=== PATIENT | female | born 1980 | race Caucasian/White ===

== ENCOUNTER 2018-01-28 09:37 | Emergency (ER) | payer MEDICAID, OTHER ==
[~2018-01-28 09:37] MED LIST: AMOX-559 PO; AZIT-18 PO; BENZ100C4 PO; CEFU500T50 PO; CYCL-277 PO; DICL-195 PO; DIPH-1 PO; DOXY-228 PO; HYDR-3250 PO; HYDR-385 PO; HYDR-4309 PO; IBUP-1455 PO; IPRA3AMP10 IH; KET10 PO; LOR5/325 PO; LORA10CA3 PO; METH-543 PO; METH4TAB66 PO; ONDA-2 PO; ONDA4TAB PO; ONDA4TAB97 PO; OXYC-865 PO; OXYC1TAB54 PO; PANT20TA27 PO; PANT40TA65 PO; PER PO; PRED20TA6 PO; PROM-110 PO; RANI-318 PO; RANI-366 PO; SODI3.5O4 OP; SULF-198 PO; TRAM-420 PO; [UNRECOGNIZED DRUG - OTHER]
--- NOTE | 2018-01-28 11:17 | RADIOLOGY IMAGING REPORT ---
FACILITY: [facility] [place] PATIENT NAME: Sandra Zhu : 1980 MR: [id number] V: [id number] EXAM DATE: ORDERING PHYSICIAN: NATALYA RICARDO TECHNOLOGIST: Location: [facility] Patient: Sandra Zhu : 1980 Visit/Account:[id number] Date of Sevice: 01/28/2018 EXAMINATION: HIP LEFT HISTORY: Left hip pain. COMPARISON: 02/01/2015. FINDINGS: AP view of the pelvis and frog-leg lateral view of the left hip are obtained. Bones: Negative. Joint spaces: Negative. Hardware: None. Alignment: Normal. Soft tissues: Negative. IMPRESSION: No acute fracture or dislocation of the left hip. Report Dictated By: Mayo Freeman MD at 01/28/2018 11:12 AM Report E-Signed By: Mayo Freeman MD at 01/28/2018 11:13 AM WSN:[id number]
[2018-01-28] MEDS ORDERED: IBUPROFEN 600 MG TAB PO ONE (11:20)
--- NOTE | 2018-01-28 11:38 | ER Report ---
History and Physical Time Seen By MD: 10:00 Hx. of Stated Complaint: PT AWOKE AROUND 6:30 WITH LEFT HIP PAIN. HPI/ROS 38 y/o female had a minor orthopedic surgery approximately 4-5 weeks ago. Short surgery. Never non weight bearing. She wore a walking boot for 2 weeks. Now presents to the ED with a sharp, focal pain in her anterior thigh. No posterior leg pain. No chest pain or SOB. No pain in her calf or popliteal fossa. No fever /chills. No trauma/ falls. No abdominal pain. No vaginal bleeding. Allergies: Coded Allergies: codeine (Verified Allergy, Unknown, 01/28/18) Home Meds Active Scripts Cyclobenzaprine Hcl (CYCLOBENZAPRINE HCL) 5 Mg Tablet, 10 MG PO TID, #18 TAB Prov:THA VILLATORO MD 11/09/16 Reported Medications Ranitidine Hcl (ZANTAC) 150 Mg Tablet, 150 MG PO DAILY 02/08/15 Pantoprazole Sodium (PANTOPRAZOLE SODIUM) 20 Mg Tablet.dr, 40 MG PO QDAY, TAB.SR 02/08/15 Reviewed Nurses Notes: Yes Old Medical Records Reviewed: Yes Hx Smoking: Yes (1ppd) Smoking Status: Current: Every Day Smoker Exposure to Second Hand Smoke?: Yes Hx Substance Use Disorder: No Hx Alcohol Use: No Constitutional Vital Sign - Last 24 Hours 01/28/18 01/28/18 01/28/18 01/28/18 09:51 09:52 10:00 10:02 Temp 97.9 Pulse 106 99 Resp 16 B/P (MAP) 131/93 (106) 114/94 (101) 131/93 Pulse Ox 91 91 O2 Delivery Room Air 01/28/18 01/28/18 01/28/18 01/28/18 10:07 10:15 10:22 10:30 Pulse 95 B/P (MAP) 121/80 (94) 115/74 (88) Pulse Ox 91 92 01/28/18 01/28/18 01/28/18 10:45 11:00 11:15 B/P (MAP) 126/88 (101) 116/69 (85) 125/92 (103) Physical Exam GE: A/O x3 HEENT: PERRL, EOMI, moist mucosa CV: RRR no m/r/g Lungs: cta b/l Abdomen: soft, NTND MSK: Full ROM of right hip. No bony TTP. b/l LE symmetric. No posterior LE TTP, Point TTP at the insertion on the insertion of the quadratus femoris DDX: septic joint, DVT, fracture, dislocation, tendonitis, bursitis Medical Decision Making Data Points Laboratory Hematology Test 01/28/18 10:10 Urine HCG, Qualitative Negative (NEGATIVE) Chemistry Test 01/28/18 10:10 Urine HCG, Qualitative Negative (NEGATIVE) Urinalysis Test 01/28/18 10:10 Urine HCG, Qualitative Negative (NEGATIVE) EKG/Imaging Imaging Xray left hip: no fracture/dislocation, no effusion ED Course/Re-evaluation ED Course No falls or other trauma, no fever/chills, wore walking boot for weeks after minor surgery. I think she has a tendonitis from wearing a walking boot. I do not think this is DVT. She has point TTP at the tendon insertion. She refused Toradol. We placed a lidocaine patch and will give her gabapentin for the radiculopathy. She will follow up with her PCM this week. Decision to Disposition Date: Jan 28, 2018 Decision to Disposition Time: 11:59 Depart Departure Latest Vital Signs Vital Signs Date Time Temp Pulse Resp B/P (MAP) Pulse Ox O2 Delivery O2 Flow Rate FiO2 01/28/18 11:15 125/92 (103) 01/28/18 10:22 92 01/28/18 10:07 95 01/28/18 10:02 97.9 16 Room Air Impression: Primary Impression: Tendonitis Condition: Improved Disposition: HOME OR SELF-CARE Referrals: ONEYDA MATOS PA-C (PCP) New Scripts Gabapentin (GABAPENTIN) 300 Mg Capsule 300 MG PO TID for 10 Days, CAPSULE Prov: NATALYA RICARDO MD 01/28/18 Patient Instructions: Hip Bursitis (ED) NATALYA RICARDO MD Jan 28, 2018 11:38
[2018-01-28 11:45] VITALS: BP 116/74
[2018-01-28] MEDS ORDERED: LIDOCAINE 5% PATCH TP SCH (11:45)
[2018-01-28] MEDS ORDERED: GABA-549 PO (12:04)
[2018-01-28] MEDS ORDERED: PATCH REMOVAL 1 EA TOP SCH (21:00)
== END 2018-01-28 12:12 | disposition home or self-care (01) ==
LOC: ER 09:58
DX: M76.9 Unspecified enthesopathy, lower limb, excluding foot (principal)
CPT/HCPCS: 81025; 99283

== ENCOUNTER 2018-09-11 11:59 | Emergency (ER) | payer OTHER, MEDICAID ==
[~2018-09-11 11:59] MED LIST changes: +GABA-549 PO; -HYDR-4309 PO; +HYDR-653 PO; -SODI3.5O4 OP; +[UNRECOGNIZED DRUG - OTHER] OP
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
[2018-09-11] MEDS ORDERED: ASPI-1471 PO (12:12)
[2018-09-11] MEDS ORDERED: PREN-127 PO (12:12)
[2018-09-11] MEDS ORDERED: DEXL60CA6 PO (12:12)
[2018-09-11 13:00] VITALS: BP 105/70
--- NOTE | 2018-09-11 13:33 | RADIOLOGY IMAGING REPORT ---
FACILITY: [facility] PATIENT NAME: Sandra Zhu : 1980 MR: [id number] V: [id number] EXAM DATE: ORDERING PHYSICIAN: KATHARINE LE TECHNOLOGIST: Location: [facility] Patient: Sandra Zhu : 1980 Visit/Account:[id number] Date of Sevice: 09/11/2018 EXAMINATION: Left knee series, 3 views 09/11/2018 12:21 PM HISTORY: trauma COMPARISON: 02/04/2016 FINDINGS: Visualized bony structures are intact and anatomically aligned without fracture or other a cute osseous abnormality evident. IMPRESSION: Negative exam. Report Dictated By: Jw Boudreaux MD at 09/11/2018 1:28 PM Report E-Signed By: Jw Boudreaux MD at 09/11/2018 1:30 PM WSN:[email or web address]
== END 2018-09-11 13:08 | disposition home or self-care (01) ==
LOC: ER 12:06
DX: O26.892 Other specified pregnancy related conditions, second trimester (principal); Z3A.20 20 weeks gestation of pregnancy
CPT/HCPCS: 99283

== ENCOUNTER → 2018-09-14 | Outpatient (CLI) | payer OTHER, MEDICAID ==
[~2018-09-14] MED LIST changes: +ASPI-1471 PO; +DEXL60CA6 PO; +PREN-127 PO
--- NOTE | 2018-09-14 16:07 | RADIOLOGY IMAGING REPORT ---
FACILITY: [facility] PATIENT NAME: Sandra Zhu : 1980 MR: [id number] V: [id number] EXAM DATE: ORDERING PHYSICIAN: ALCIDES CARNES [place]CHNOLOG[place]: [place] [facility] [place] Zhu : 1980 Visit/Account:[id number] Date of Sevice: 09/14/2018 Left lower extremity venous Doppler duplex ultrasound scan. HISTORY: Left leg pain. COMPARISON: None. A color flow Doppler duplex ultrasound examination with spectral analysis was performed on the lower extremity. The common femoral vein, superficial femoral vein, and popliteal vein are normal. These ve ssels compress and augment normally. The upper portions of the trifurcation veins are unremarkable. P ortions of the deep veins of the calf are obscured. No intraluminal filling defects are identified to suggest acute thrombus in the deep venous system. No abnormal fluid collections. A venous reflux study was not performed at this time. Note that Doppler ultrasound is somewhat insensitive below the knee. IMPRESSION: Negative for acute deep vein thrombosis. Report Dictated By: Ruddy Sapp MD at 09/14/2018 4:02 PM Report E-Signed By: Ruddy Sapp MD at 09/14/2018 4:03 PM MARIEN:SANDRA
== END ==
LOC: US 14:27
PROVIDERS: ATTEND Orthopaedic Surgery
DX: R22.42 Localized swelling, mass and lump, left lower limb (principal)

== ENCOUNTER 2019-02-02 16:22 | Emergency (ER) | payer MEDICAID, OTHER ==
[~2019-02-02 16:22] MED LIST changes: -RANI-366 PO; +RANI-54 PO
--- NOTE | 2019-02-02 16:30 | ER Report ---
History and Physical Time Seen By MD: 16:26 HPI/ROS CHIEF COMPLAINT: Headache HISTORY OF PRESENT ILLNESS: This is a 39-year-old female who presents to the emergency department, 2 days , for a headache. Patient had a scheduled 2 days ago at [facility], she is a G18, P3. There were 2 attempts at her epidural. went well. She was told by her INGOT STRIPPER to have the rachel removed in 2 days, she went to urgent care this morning to have the rachel removed, they noted her blood pressure be quite e levated subsequently she was instructed to follow-up in the emergency department, she states that she went home after urgent care, she had to wait until her boyfriend was done with work so that he could take care of the kids including the who is formula fed. She states that she has a headache that is located at the "base of her skull" and is distributed through the head, slightly photophobic, no other visual disturbances. She does have mild tenderness to the lower abdomen. She denies fevers or chills. No nausea or vomiting. No chest pain or shortness of breath. No history of hypertension or preeclampsia. REVIEW OF SYSTEMS: Constitutional: No fever, no chills. Eyes: No discharge. ENT: No sore throat. Cardiovascular: No chest pain, no palpitations. Respiratory: No cough, no shortness of breath. Gastrointestinal: As above. INGOT STRIPPER: As above. Genitourinary: No hematuria. Musculoskeletal: No back pain. Skin: No rashes. Neurological: As above. Allergies: Coded Allergies: codeine (Verified Allergy, Severe, ANAPHYLAXIS, 09/11/18) Home Meds Active Scripts Labetalol Hcl (LABETALOL HCL) 200 Mg Tablet, 200 MG PO BID for 4 Days, #8 TAB 0 Refills Prov:RIOSMINNIE Ron COMPUTER TYPESETTER KEYLINER-BC 02/02/19 Reported Medications Aspirin (ASPIR 81) 81 Mg Tablet., 81 MG PO QDAY, TAB 09/11/18 Vits W-Ca,Fe,Fa(<1MG) ( VITAMINS) 1 Each Tablet, 1 EACH PO DAILY, TAB 09/11/18 Dexlansoprazole (DEXILANT) 60 Mg , 60 MG PO QDAY 09/11/18 Ranitidine Hcl (ZANTAC) 150 Mg Tablet, 150 MG PO DAILY 02/08/15 Past Medical/Surgical History Patient has a past medical and surgical history of headaches, migraines, Crohn's disease, GERD, hiatal hernia, foot fracture, bulging discs, chronic back pain, sees no allergies, cholecystectomy, D&C 5, right and left little toe release, deviated septum, tonsillectomy. Reviewed Nurses Notes: Yes Hx Smoking: Yes (1ppd) Smoking Status: Current: Every Day Smoker Exposure to Second Hand Smoke?: Yes Hx Substance Use Disorder: No Hx Alcohol Use: No Constitutional Vital Sign - Last 24 Hours 02/02/19 02/02/19 02/02/19 02/02/19 16:24 16:27 16:27 16:37 Temp 97.9 Pulse 97 91 Resp 20 B/P (MAP) 174/109 (130) 153/101 (118) 174/109 Pulse Ox 94 94 O2 Delivery Room Air 02/02/19 02/02/19 02/02/19 02/02/19 16:52 16:57 17:07 17:16 Pulse 93 89 B/P (MAP) 152/116 (128) 144/93 (110) Pulse Ox 94 91 02/02/19 02/02/19 02/02/19 02/02/19 17:22 17:27 17:30 17:42 Pulse 91 90 94 B/P (MAP) 168/108 (128) Pulse Ox 90 89 93 02/02/19 17:46 B/P (MAP) 153/97 (115) Physical Exam General Appearance: The patient is alert, has no immediate need for airway protection and no signs of toxicity. Eyes: Pupils equal and round no pallor or injection. ENT, Mouth: Mucous membranes are dry. Respiratory: There are no retractions, lungs are clear to auscultation. Cardiovascular: Regular rate and rhythm. No murmurs, clicks or rubs. Gastrointestinal: Abdomen is soft, round, with mild tenderness to the lower abdomen, no masses, hypoactive bowel sounds in all quadrants. Neurological: Alert and oriented 4. Moving all cavities. Following all commands. No focal neuro deficits. Skin: Multiple rachel noted in a horizontal fashion to the suprapubic region from the incision, no drainage, no erythema or cellulitis, the incision looks healthy and intact. No erythema or signs of infection along the spine. Musculoskeletal: Neck is supple non tender. Extremities are nontender, nonswollen and have full range of motion. DIFFERENTIAL DIAGNOSIS: After history and physical exam differential diagnosis was considered for preeclampsia, eclampsia, HELLP syndrome. Medical Decision Making Data Points Result Diagram: 02/02/19 1653 02/02/19 1653 Laboratory Hematology Test 02/02/19 16:53 White Blood Count 12.5 k/uL (4.5-11.0) H Red Blood Count 4.01 M/uL (4.17-5.56) L Hemoglobin 12.0 g/dL (12.0-16.0) Hematocrit 35.3 % (34.0-47.0) Mean Corpuscular Volume 87.9 fL (80.0-96.0) Mean Corpuscular Hemoglobin 29.9 pg (26.0-33.0) Mean Corpuscular Hemoglobin Concent 34.1 g/dL (32.0-36.0) Red Cell Distribution Width 13.8 % (11.5-14.5) Platelet Count 441 K/uL (150-450) Mean Platelet Volume 7.2 fL (7.2-11.1) Neutrophils (%) (Auto) 71.4 % (39.4-72.5) Lymphocytes (%) (Auto) 18.6 % (17.6-49.6) Monocytes (%) (Auto) 5.1 % (4.1-12.4) Eosinophils (%) (Auto) 3.8 % (0.4-6.7) Basophils (%) (Auto) 1.1 % (0.3-1.4) Nucleated RBC Relative Count (auto) 0.0 /100WBC Neutrophils # (Auto) 8.9 K/uL (2.0-7.4) H Lymphocytes # (Auto) 2.3 K/uL (1.3-3.6) Monocytes # (Auto) 0.6 K/uL (0.3-1.0) Eosinophils # (Auto) 0.5 K/uL (0.0-0.5) Basophils # (Auto) 0.1 K/uL (0.0-0.1) Nucleated RBC Absolute Count (auto) 0.00 K/uL Chemistry Test 02/02/19 16:53 Sodium Level 138 mmol/L (137-145) Potassium Level 3.7 mmol/L (3.5-5.0) Chloride Level 109 mmol/L (98-107) Carbon Dioxide Level 20 mmol/L (22-31) Blood Urea Nitrogen 9 mg/dl (7-18) Creatinine 0.50 mg/dl (0.52-1.04) Glomerular Filtration Rate Calc > 60.0 Random Glucose 86 mg/dl (75-110) Calcium Level 8.7 mg/dl (8.4-10.2) Total Bilirubin 0.3 mg/dl (0.2-1.3) Aspartate Amino Transf (AST/SGOT) 14 U/L (0-35) Alanine Aminotransferase (ALT/SGPT) 23 U/L (0-56) Alkaline Phosphatase 132 U/L (0-126) Lactate Dehydrogenase 429 U/L (0-590) Total Protein 6.5 g/dl (6.3-8.2) Albumin 3.3 g/dl (3.5-5.0) Urinalysis Test 02/02/19 16:25 Urine Color Straw Urine Clarity Clear Urine pH 6.0 pH (4.8-9.5) Urine Specific [place] 1.006 Urine Protein Negative mg/dL (NEGATIVE) Urine Glucose (UA) Negative mg/dL (NEGATIVE) Urine Ketones Negative mg/dL (NEGATIVE) Urine Blood Moderate (NEGATIVE) Urine Nitrite Negative (NEGATIVE) Urine Bilirubin Negative (NEGATIVE) Urine Urobilinogen Negative mg/dL (0.2-1.9) Urine Leukocyte Esterase Trace (NEGATIVE) Urine RBC 14 /HPF (0-2/HPF) Urine WBC 1 /HPF (0-5/HPF) Urine Squamous Epithelial Cells Many /LPF (</=FEW) Urine Bacteria Negative /HPF (NONE-FEW) Urine Mucus None /HPF (NONE-FEW) EKG/Imaging EKG Interpretation 12 lead EKG: Time of EKG 1650. Rhythm: Normal sinus rhythm, ventricular rate 87 bpm P [place]: normal QRS: normal ST segments: No ST depression or elevation identified. ED Course/Re-evaluation Clinical Indication for ER IV: IV Access ED Course The patient was admitted to room. A history of physical were obtained. Differential diagnoses were considered. IV was started. A CBC, CMP, LDH were obtained. UA was collected. 2 g of IV magnesium were given, 20 mg IV labetalol with improvement of the patient's blood pressure and headache.CBC showing white count 4.5, chemistry unremarkable, normal LVH, contaminated UA however there is no indication of protein on urinalysis. EKG showing normal sinus rhythm, I did review the results with the patient. I did tell her that her lab studies were not concerning at this time for preeclampsia or hellp syndrome. I did speak with Dr. Olea, the patient's INGOT STRIPPER's partner on-call in [place], she was familiar with the patient as noted below, no other conversation, the patient was given 200 mg of by mouth labetalol in the emergency department, she will continue taking 200 mg twice a day until she follows up with her INGOT STRIPPER Monday or Monday for reevaluation of her blood pressure and headache. She understands that should her symptoms become worse or any other concerns she will return to the year immediately for reevaluation. She is agreeable with this plan of care and discharged home. 02/02/2019 5:59:09 pm I did speak with Dr. Olea, the INGOT STR[employer] in [place] on- call, she is familiar with the patient, she suggested starting the patient on 200 mg of labetalol twice a day until she follows up with her INGOT STRIPPER Monday or Monday, Dr. Miranda which time they'll reassess her blood pressure as well as her incision and likely remove the rachel. Decision to Disposition Date: Feb 02, 2019 Decision to Disposition Time: 17:59 Depart Departure Latest Vital Signs Vital Signs Date Time Temp Pulse Resp B/P (MAP) Pulse Ox O2 Delivery O2 Flow Rate FiO2 02/02/19 17:46 153/97 (115) 02/02/19 17:42 94 93 02/02/19 16:27 97.9 20 Room Air Impression: Primary Impression: hypertension Condition: Improved Disposition: HOME OR SELF-CARE Referrals: ONEYDA MATOS PA-C (PCP) ADDISON MIRANDA MD 2 Days New Scripts Labetalol Hcl (LABETALOL HCL) 200 Mg Tablet 200 MG PO BID for 4 Days, #8 TAB 0 Refills Prov: MINNIE NATION COMPUTER TYPESETTER KEYLINER-BC 02/02/19 Patient Instructions: Hypertension (ED), Post Discharge Instruct Additional Instructions: Follow up with Dr. Miranda Monday of Monday. Take 200mg of Labetolol twice a day until you follow up. Be cautious and when you move from laying to sitting or sitting to standing, do this slowly, as your blood pressure may need time to adjust. Continue drinking plenty of fluids. Get plenty of rest. Return to the ED for any other concerns or worsening symptoms. You can take Ibuprofen or Tylenol as needed for the headache too. IMNNIE NATION COMPUTER TYPESETTER KEYLINER-BC Feb 02, 2019 16:30
[2019-02-02] MEDS ORDERED: MAGNESIUM SUL* 2 GM/50 ML IVPB 50 ML IVPB ONE (16:45)
[2019-02-02] MEDS ORDERED: LABETALOL HCL 100 MG/20ML VIAL IVP ONE (16:45)
--- NOTE | 2019-02-02 17:07 | EKG ---
FACILITY: [facility] [place] PATIENT NAME: GEORGETTE HORNER : [id number] MR: [id number] V: [id number] EXAM DATE: ORDERING PHYSICIAN: MINNIE NATION TECHNOLOGIST: ISA Test Reason : HTN Blood Pressure : / mmHG Vent. Rate : 087 BPM Atrial Rate : 087 BPM P-R Int : 116 ms QRS Dur : 090 ms QT Int : 366 ms P-R-T Axes : 008 -49 031 degrees QTc Int : 440 ms Sinus rhythm Left axis No acute appearing findings No previous ECGs available Confirmed by DALILA BANERJEE ([id number]) on 02/02/2019 6:00:56 PM Referred By: REY Confirmed By:DALILA BANERJEE
[2019-02-02 17:19] LABS: PLATELET COUNT, AUTOMATED 441 K/uL (150-450)
[2019-02-02 17:46] VITALS: BP 153/97
[2019-02-02] MEDS ORDERED: LABETALOL HCL 100 MG TAB PO ONE (17:55)
[2019-02-02] MEDS ORDERED: LABE200T35 PO (17:58)
== END 2019-02-02 18:08 | disposition home or self-care (01) ==
LOC: ER 17:22
DX: O16.5 Unspecified maternal hypertension, complicating the puerperium (principal)
CPT/HCPCS: 81001; 83615; 85025; 93005; 96365; 96375; 99284; J3475; 82040; 82247; 82310; 82374; 82435; 82565; 82947; 84075; 84132; 84155; 84295; 84450; 84460; 84520